=== PATIENT | male | born 1935 | race Hispanic/Latino ===

== ENCOUNTER 2017-07-06 11:21 | Observation (INO) | payer MEDICARE, OTHER ==
[~2017-07-06] VITALS: Ht 170.2 cm; Wt 112.5 kg
[~2017-07-06 11:21] MED LIST: ALLO300T2 PO; CHOL5POW MC; FURO20TA4 PO; METF500T6 PO; NAPR-1023 PO; PANCREASE PO; PRAV40TA3 PO
[2017-07-06] MEDS ORDERED: ENOXAPARIN SODIUM 30 MG/0.3 ML SQ ONE (11:50)
[2017-07-06] MEDS ORDERED: 1/2 NORMAL SALINE 1,000 ML IV ONE (11:51)
[2017-07-06] MEDS ORDERED: CEFTRIAXONE SODIUM 1 GM ONE (11:51)
[2017-07-06 12:32] LABS: BASOPHILS % (AUTO) 0.4 % (0.0-5.0); EOSINOPHILS % (AUTO) 1.1 % (0.0-8.0); HEMATOCRIT 36.3 % (42-54); MEAN CORPUSCULAR HEMOGLOBIN 34.1 pg (27.0-33.0); MEAN CORPUSCULAR HGB CONC 35.9 g/dL (32.0-36.0); MONOCYTES % (AUTO) 8.8 % (3.0-13.0); NEUTROPHILS % (AUTO) 68.7 % (40.0-77.0); PLATELET COUNT (AUTO) 175 K/uL (130-400); RED BLOOD CELL COUNT(AUTO) 3.82 MIL/uL (4.50-6.20); RED CELL DISTRIBUTION WIDTH 13.1 % (11.0-15.5); WHITE BLOOD COUNT (AUTO) 4.2 K/uL (4.8-10.8)
[2017-07-06 12:48] LABS: CREATININE 1.1 mg/dL (0.5-1.5); POTASSIUM 4.1 mmol/L (3.5-5.1)
[2017-07-06 12:52] LABS: ALBUMIN 3.4 g/dL (3.5-5.0); BILIRUBIN,DIRECT 0.1 mg/dL (0.0-0.3); BILIRUBIN,TOTAL 0.5 mg/dL (0.2-1.0); TOTAL PROTEIN, SERUM 6.6 g/dL (6.0-8.3)
[2017-07-06 17:03] LABS: BILIRUBIN,URINE Negative (NEGATIVE); COLOR,URINE Yellow (YELLOW); GLUCOSE, URINE (UA) Negative (NEGATIVE); KETONES,URINE Negative (NEGATIVE); LEUKOCYTE ESTERASE ,URINE Negative (NEGATIVE); NITRATE,URINE Negative (NEGATIVE); OCCULT BLOOD,URINE Negative (NEGATIVE); PH,URINE 5.5 (5.0-8.0); PROTEIN,URINE Negative (NEGATIVE)
[2017-07-06 17:04] LABS: APPEARANCE,URINE CLEAR (CLEAR)
[2017-07-06 18:27] VITALS: BP 153/73
[2017-07-06] MEDS ORDERED: GLUCAGON 1MG KIT 1 MG ML IM PRN (18:30)
[2017-07-06] MEDS: 1/2 NORMAL SALINE 1,000 ML IV SCH (18:30)
[2017-07-06] MEDS ORDERED: DEXTROSE 50%-WATER 50 ML DISP.SYRIN IV PRN (18:30)
[2017-07-06 19:20] VITALS: BP 149/72
[2017-07-06] MEDS ORDERED: PHARMACY COMMUNICATION MISC SCH (20:45)
[2017-07-06] MEDS ORDERED: INSULIN R PO SS1 SQ SCH ×2 (21:00)
[2017-07-06 23:30] VITALS: BP 158/79
[2017-07-07 03:00] VITALS: BP 164/74
[2017-07-07] MEDS: 1/2 NORMAL SALINE 1,000 ML IV SCH (03:25)
[2017-07-07 03:39] LABS: BASOPHILS % (AUTO) 0.6 % (0.0-5.0); EOSINOPHILS % (AUTO) 2.1 % (0.0-8.0); HEMATOCRIT 37.3 % (42-54); LYMPHOCYTES % (AUTO) 34.4 % (21.0-51.0); MEAN CORPUSCULAR HEMOGLOBIN 32.6 pg (27.0-33.0); MEAN CORPUSCULAR HGB CONC 34.5 g/dL (32.0-36.0); MEAN CORPUSCULAR VOLUME 94.5 fL (79-99); MONOCYTES % (AUTO) 9.6 % (3.0-13.0); NEUTROPHILS % (AUTO) 53.3 % (40.0-77.0); PLATELET COUNT (AUTO) 178 K/uL (130-400); RED BLOOD CELL COUNT(AUTO) 3.95 MIL/uL (4.50-6.20); RED CELL DISTRIBUTION WIDTH 12.7 % (11.0-15.5); WHITE BLOOD COUNT (AUTO) 4.9 K/uL (4.8-10.8)
[2017-07-07 03:47] LABS: CREATININE 1.1 mg/dL (0.5-1.5); POTASSIUM 3.9 mmol/L (3.5-5.1)
[2017-07-07] MEDS: INSULIN R PO SS1 SQ SCH ×2 (06:29→17:00)
[2017-07-07 07:58] VITALS: BP 161/77
[2017-07-07] MEDS ORDERED: CEFTRIAXONE SODIUM 1 GM IVP SCH (09:00)
[2017-07-07 11:53] VITALS: BP 153/69
[2017-07-07 16:00] VITALS: BP 152/89
== END 2017-07-07 18:30 ==
LOC: EDH 11:21 → EDHIP 11:52 → 3AH 17:55
PROVIDERS: ADMIT Internal Medicine; ATTEND Internal Medicine
DX: N39.0 Urinary tract infection, site not specified (principal); R41.82 Altered mental status, unspecified; R41.0 Disorientation, unspecified; M10.9 Gout, unspecified; K21.9 Gastro-esophageal reflux disease without esophagitis; I10 Essential (primary) hypertension; E78.5 Hyperlipidemia, unspecified; E11.9 Type 2 diabetes mellitus without complications
CPT/HCPCS: 36415 ×2; 70450; 71010; 80048; 80053; 80076; 81003; 82150; 82948 ×3; 83690; 85025 ×2; 87088; 96361; 96374; 99285; G0378 ×31; J0696 ×2; J1650

== ENCOUNTER 2017-07-19 13:16 | Emergency (ER) | payer MEDICARE, OTHER ==
[2017-07-19 14:16] LABS: BASOPHILS % (AUTO) 0.2 % (0.0-5.0); EOSINOPHILS % (AUTO) 1.1 % (0.0-8.0); LYMPHOCYTES % (AUTO) 12.2 % (21.0-51.0); MEAN CORPUSCULAR HEMOGLOBIN 32.9 pg (27.0-33.0); MEAN CORPUSCULAR HGB CONC 35.1 g/dL (32.0-36.0); MEAN CORPUSCULAR VOLUME 93.8 fL (79-99); MONOCYTES % (AUTO) 11.3 % (3.0-13.0); NEUTROPHILS % (AUTO) 75.2 % (40.0-77.0); PLATELET COUNT (AUTO) 171 K/uL (130-400); RED BLOOD CELL COUNT(AUTO) 3.51 MIL/uL (4.50-6.20); RED CELL DISTRIBUTION WIDTH 12.9 % (11.0-15.5); WHITE BLOOD COUNT (AUTO) 5.8 K/uL (4.8-10.8)
[2017-07-19 14:20] LABS: CREATININE 1.3 mg/dL (0.5-1.5); POTASSIUM 3.7 mmol/L (3.5-5.1)
[2017-07-19 14:28] LABS: INR 0.95 (0.85-1.15); PARTIAL THROMBOPLASTIN TIME 26.1 SEC (26.3-35.5)
[2017-07-19 14:33] LABS: ALBUMIN 3.1 g/dL (3.5-5.0); BILIRUBIN,TOTAL 0.4 mg/dL (0.2-1.0); CREATINE KINASE MB 1.7 ng/mL (0.5-3.6); TOTAL PROTEIN, SERUM 6.5 g/dL (6.0-8.3)
== END 2017-07-19 16:22 | disposition home or self-care (01) ==
LOC: EDH 13:16
DX: R55 Syncope and collapse (principal); J06.9 Acute upper respiratory infection, unspecified; E11.9 Type 2 diabetes mellitus without complications; K21.9 Gastro-esophageal reflux disease without esophagitis; I10 Essential (primary) hypertension; H40.9 Unspecified glaucoma; M10.9 Gout, unspecified; Z88.8 Allergy status to other drugs, medicaments and biological substances; Z90.49 Acquired absence of other specified parts of digestive tract; Z98.890 Other specified postprocedural states; Z87.891 Personal history of nicotine dependence
CPT/HCPCS: 36415; 70450; 71045; 72125; 80053; 82550; 82553; 84484; 85025; 85610; 85730; 87804; 93005

== ENCOUNTER 2017-08-29 09:51 | Emergency (ER) | payer MEDICARE, OTHER | END 2017-08-29 11:04 | disposition home or self-care (01) | LOC: EDH 09:51 | DX: L98.411 Non-pressure chronic ulcer of buttock limited to breakdown of skin (principal); E11.9 Type 2 diabetes mellitus without complications; K21.9 Gastro-esophageal reflux disease without esophagitis; I10 Essential (primary) hypertension; H40.9 Unspecified glaucoma; Z88.8 Allergy status to other drugs, medicaments and biological substances ==